=== PATIENT | male | born 1960 | race Caucasian/White ===

== ENCOUNTER 2020-11-10 10:31 | Outpatient (CLI) | payer BC | END 2020-11-10 10:32 | disposition home or self-care (01) | LOC: MADRAD 10:31 | PROVIDERS: ATTEND Orthopaedic Surgery | DX: M25.561 Pain in right knee (principal); M25.562 Pain in left knee ==

== ENCOUNTER 2021-06-14 12:48 | Outpatient (CLI) | payer BC | END 2021-06-14 12:49 | disposition home or self-care (01) | LOC: MADRAD 12:48 | PROVIDERS: ATTEND Family Medicine | DX: M79.672 Pain in left foot (principal) ==

== ENCOUNTER 2022-10-04 14:02 | Outpatient (CLI) | payer BC | END 2022-10-04 14:03 | disposition home or self-care (01) | LOC: MADEKG 14:02 | PROVIDERS: ATTEND Internal Medicine | DX: I48.0 Paroxysmal atrial fibrillation (principal) | CPT/HCPCS: 93005; 93010 ==